=== PATIENT | male | born 1995 | race Caucasian/White ===

== ENCOUNTER 2020-12-20 13:11 | Emergency (ER) | payer OTHER ==
[~2020-12-20] VITALS: Ht 177.8 cm; Wt 72.7 kg
[2020-12-20 13:20] VITALS: BP 136/64
--- NOTE | 2020-12-20 14:01 | PHYS DOC ---
Past Medical History Past Surgical History: No Surgical History (KEVIN FUENTES BLENDING OPERATOR) General Adult EDM: Chief Complaint: LACERATION/AVULSION HPI: HPI: Patient is a 25 year old male patient who presents to the ED today with scalp laceration, patient states he hit his head on a door bolt at the EMS bay. Patient denies any loss of consciousness. Patient works for EMS crew. (KEVIN FUENTES BLENDING OPERATOR) Review of Systems: Review of Systems: Constitutional: Denies fever or chills. [] Eyes: Denies change in visual acuity. [] HENT: Denies nasal congestion or sore throat. [] Respiratory: Denies cough or shortness of breath. [] Cardiovascular: Denies chest pain or edema. [] GI: Denies abdominal pain, nausea, vomiting, bloody stools or diarrhea. [] : Denies dysuria. [] Musculoskeletal: Denies back pain or joint pain. [] Integument: Reports scalp laceration Neurologic: Denies headache, focal weakness or sensory changes. [] [] Psychiatric: Denies depression or anxiety. [] (KEVIN FUENTES BLENDING OPERATOR) Heart Score: C/O Chest Pain: N/A Risk Factors: Risk Factors: DM, Current or recent (<one month) smoker, HTN, HLP, family history of CAD, obesity. Risk Scores: Score 0 - 3: 2.5% MACE over next 6 weeks - Discharge Home Score 4 - 6: 20.3% MACE over next 6 weeks - Admit for Clinical Observation Score 7 - 10: 72.7% MACE over next 6 weeks - Early Invasive Strategies (KEVIN FUENTES BLENDING OPERATOR) Allergies: Allergies: Allergies Coded Allergies Type Severity Reaction Last Updated Verified No Known Drug Allergies 12/20/20 No (KEVIN FUENTES BLENDING OPERATOR) Physical Exam: PE: Constitutional: Well developed, well nourished, no acute distress, non-toxic appearance. [] HENT: Normocephalic, atraumatic, bilateral external ears normal, oropharynx moist, no oral exudates, nose normal. [] Eyes: PERRLA, EOMI, conjunctiva normal, no discharge. [] Neck: Normal range of motion, no tenderness, supple, no stridor. [] Cardiovascular:Heart rate regular rhythm, no murmur [] Lungs & Thorax: Bilateral breath sounds clear to auscultation [] Abdomen: Bowel sounds normal, soft, no tenderness, no masses, no pulsatile masses. [] Skin: Right occipital with a superficial laceration approximately 1 cm long with slight bleeding. Back: No tenderness, no CVA tenderness. [] Extremities: No tenderness, no cyanosis, no clubbing, ROM intact, no edema. [] Neurologic: Alert and oriented X 3, normal motor function, normal sensory function, no focal deficits noted. Cranial nerves II through XII intact Psychologic: Affect normal, judgement normal, mood normal. [] (KEVIN FUENTES BLENDING OPERATOR) Current Patient Data: Vital Signs: Vital Signs Date Time Temp Pulse Resp B/P (MAP) Pulse Ox O2 Delivery O2 Flow Rate FiO2 12/20/20 13:20 98.3 78 16 136/64 (88) 97 Room Air 98.3 (KEVIN FUENTES BLENDING OPERATOR) EKG: EKG: [] (KEVIN FUENTES APRN) Radiology/Procedures: Radiology/Procedures: Laceration/Wound Repair Wound Location: Right occipital Wound's Depth, Shape: Vertical Wound Length (cm): Approximately 1 cm Wound Explored: clean Irrigated w/ Saline (ccs): 10 Betadine Prep?: Not applicable Wound Repaired With: 2 esa Progress : Wound was left open to air (KEVIN FUENTES BLENDING OPERATOR) Course & Med Decision Making: Course & Med Decision Making Pertinent Labs and Imaging studies reviewed. (See chart for details) This a 25-year-old male patient presenting to the ED today with scalp laceration that was closed with 2 esa by me. Tetanus is up-to-date. Wound care instructions and return precautions provided. (KEVIN FUENTES BLENDING OPERATOR) Course & Med Decision Making I was the Attending physician on the above date of service of this patient. This patient was evaluated, examined, treated, and dispositioned from the emergency department by the mid-level practitioner. Although I was working at the time , no assistance was requested. Electronically signed, Sahara Suggs DO (SAHARA SUGGS DO) Man Disclaimer: Man Disclaimer: This electronic medical record was generated, in whole or in part, using a voice recognition dictation system. (KEVIN FUENTES BLENDING OPERATOR) Departure Departure Impression: Primary Impression: Scalp laceration Qualified Codes: S01.01XA - Laceration without foreign body of scalp, initial encounter Disposition: HOME / SELF CARE / HOMELESS Condition: STABLE Patient Instructions: Laceration Care, Adult, [id number] Additional Instructions: You have a scalp laceration that was closed with 2 esa. You can shower and wash your head and hair. Do not soak the laceration site. Keep the area clean and dry. You can apply Neosporin to the area twice a day. Monitor the area for any signs of infection including but not limited to increased redness, warmth, yellow drainage from the area and return to the ED for your care. Follow-up with the emergency room or your own doctor in 7 to 10 days for staple removal KEVIN FUENTES APRN Dec 20, 2020 14:01 SAHARA SUGGS DO Dec 21, 2020 16:06
== END 2020-12-20 14:40 | disposition home or self-care (01) ==
LOC: ER 13:11
DX: S01.01XA Laceration without foreign body of scalp, initial encounter (principal); W22.8XXA Striking against or struck by other objects, initial encounter; Y93.89 Activity, other specified; Y92.89 Other specified places as the place of occurrence of the external cause; Y99.8 Other external cause status
CPT/HCPCS: 12001; 99282